=== PATIENT | male | born 1945 | race Two or more races ===

== ENCOUNTER 2019-03-22 13:08 | Emergency (ER) | payer MEDICARE, OTHER ==
[~2019-03-22] VITALS: Ht 177.8 cm; Wt 87.0 kg
[2019-03-22] MEDS ORDERED: SIMV10TA3 PO (13:25)
[2019-03-22] MEDS ORDERED: AMLO10TA8 PO (13:25)
[2019-03-22] MEDS ORDERED: LISI-167 PO (13:25)
--- NOTE | 2019-03-22 13:25 | NUR ---
PT ARRIVED VIA EMS FOR NEAR SYNCOPE X 2. PER EMS, PT WAS [place] [facility] AND STATES HE STARTED TO FEEL "DIZZY AND HOT." PT STOOD UP AND HAD NEAR SYNCOPAL EVENT. PT DENIES LOC OR GLF OR HEAD TRAUMA. 18G PIV ESTABLIHED BY EMS. ORTHOSTATIC BP PERFORMED BY EMS: SITTING 67 HR, 90/62; STANDING 50 HR, 70/52. PT RECEIVED 500ML NS FLUID EN ROUTE. PT DENIES N/V OR CHEST PAIN. PT STATES LAST ETOH USE WAS 1200 TODAY BUT DENIES ETOH ABUSE. PT STATES DIZZINESS COMES AND GOES AND HE WAS SEEN AND ADMITTED TO HOSPITAL HERE IN 2007 FOR THE SAME THING BUT IS UNSURE OF DIAGNOSIS.
--- NOTE | 2019-03-22 13:28 | NUR ---
PA AND LAB AT BEDSIDE. MED REC COMPLETED.
--- NOTE | 2019-03-22 13:37 | NUR ---
PT TO XRAY.
--- NOTE | 2019-03-22 13:44 | NUR ---
PT BACK FROM XRAY. AT BEDSIDE. TECH AT BEDSIDE FOR EKG AND ORTHOSTATIC BPS.
[2019-03-22 13:47] LABS: BASOPHILS # (AUTO) 0.03 x10^3/uL (0-0.1); BASOPHILS % (AUTO) 1 % (0-1); EOSINOPHILS % (AUTO) 2 % (1-7); LYMPHOCYTES # (AUTO) 1.11 x10^3/uL (1-3.4); LYMPHOCYTES % (AUTO) 17 % (22-44); MD NO; MEAN CORPUSCULAR HEMOGLOBIN 31.3 pg (27.5-34.5); MEAN CORPUSCULAR HGB CONC 33.5 g/dL (33.2-36.2); MEAN CORPUSCULAR VOLUME 93.4 fL (81-97); MEAN PLATELET VOLUME 9.4 fL (7.4-10.4); MONOCYTES # (AUTO) 0.52 x10^3/uL (0.2-0.8); MONOCYTES % (AUTO) 8 % (2-9); NEUTROPHILS # (AUTO) 4.74 x10^3/uL (1.8-6.8); NEUTROPHILS % (AUTO) 73 % (42-75); PLATELET COUNT 210 x10^3/uL (130-400); RED BLOOD COUNT 4.97 x10^6/uL (4.38-5.82); RED CELL DISTRIBUTION WIDTH 13.4 % (9.4-14.8)
[2019-03-22 13:58] LABS: ALANINE AMINOTRANSFERASE 24 U/L (12-78); ALBUMIN 3.8 g/dL (3.4-5.0); ANION GAP 7 mmol/L (5-15); CALCIUM 8.5 mg/dL (8.5-10.1); CHLORIDE 108 mmol/L (98-107); CREATININE 1.13 mg/dL (0.7-1.3)
[2019-03-22 14:02] LABS: ALKALINE PHOSPHATASE 51 U/L (45-117); BILIRUBIN,TOTAL 0.4 mg/dL (0.2-1.0); TOTAL PROTEIN 7.3 g/dL (6.4-8.2); TROPONIN I < 0.015 ng/mL (0.000-0.045)
[2019-03-22 14:10] VITALS: BP 119/67
--- NOTE | 2019-03-22 14:11 | NUR ---
ORTHOSTATICS COMPLETED BY TECH.
--- NOTE | 2019-03-22 15:57 | NUR ---
Patient/Caregiver given discharge instructions and they have confirmed that they understand the instructions. Patient ambulatory with steady gait.
== END 2019-03-22 16:01 | disposition home or self-care (01) ==
LOC: ED 15:30
DX: R55 Syncope and collapse (principal); I10 Essential (primary) hypertension; E78.5 Hyperlipidemia, unspecified; Z90.89 Acquired absence of other organs
CPT/HCPCS: 36415; 71046; 80053; 84484; 85025; 93005; 99284